=== PATIENT | female | born 1950 | race Caucasian/White ===

== ENCOUNTER 2016-12-23 09:50 | Emergency (ER) | payer MEDICAID, OTHER ==
[~2016-12-23] VITALS: Ht 167.6 cm; Wt 59.1 kg
[2016-12-23 10:14] VITALS: BP 157/78; PULSE 139; RESP 16; O2SAT 98
--- NOTE | 2016-12-23 13:15 | ED.REPORT ---
HPI-Psychiatric Illness Date of Service December 23, 2016 ED Provider: Juan Jose Caldwell PA-C Mitzi is an otherwise healthy 66-year-old female with a chief complaint of anxiety. Patient reports a 30 year history of anxiety, which she feels is preventing her from doing things she needs to do in the near future such as signing up for Medicare, becoming established with a medical provider or making her housing arrangements. She has not seen a doctor in "years", but she had previously been prescribed a "mild tranc." She wishes to get some medication to help her with her upcoming stressful events. Admits history of a mental health hospitalization after a suicide attempt. She states she cannot recall the method of her attempt. Admits to recent suicide of her brother possibly 4 years ago as well as several friends over the years. Denies suicidal ideation, homicidal ideation, access to firearms, drug/alcohol use. Nursing Notes Stated Complaint: ANXIETY Chief Complaint: Psychiatric Complaint Nursing Notes Reviewed: Yes Allergies: Coded Allergies: No Known Allergies (Unverified , 12/23/16) Scheduled PRN Hydroxyzine Pamoate (HydrOXYzine Pamoate) 25 Mg Capsule 25 MG PO TID PRN PRN For Anxiety General Time Seen by MD: 12:50 Chief Complaint Anxious Risk-Psychiatric Illness Suicide Risk Stratification Suicide Risk Factors - Adult: : Close associate suicide: Family Hx of Suicide: Previous attempt: Prior psych admissionNo: Access to firearms, Alcohol use, Substance abuse RF Statements: Risk factors reviewed Review of Systems General: Denies fever, chills, malaise. HEENT: Denies congestion, headache, sore throat. Respiratory: Denies dyspnea, cough, shortness of breath, wheezing. Cardiovascular: Denies chest pain, palpitations. Gastrointestinal: Denies vomiting, diarrhea, abdominal pain. Genitourinary: Denies frequency, urgency, dysuria, hematuria. Otherwise as noted in HPI. Physical Exam General: Well appearing, well developed, well nourished, no acute distress. Sitting comfortably on the floor eating a meal. Head: Atraumatic, normocephalic. Eyes: No scleral icterus or injection. No discharge. Vision grossly intact. ENT: Voice clear, hearing grossly intact. Respiratory: Regular rate and rhythm. Breath sounds present, clear to auscultation and equal bilaterally. No respiratory distress. No increased work of breathing, speaks in complete sentences. Cardiovascular: Tachycardic rate at 104 bpm and regular rhythm, without murmur, gallop or rub. No pedal edema. Gastrointestinal: Abdomen flat and non-tender without guarding or rebound. Bowel sounds normoactive. Skin: Warm and dry. Neurological: Grossly nonfocal. Psychological: Alert and oriented. Speech appropriate, linear and logical. Behavior appropriate. Initial Vital Signs Vital Signs (First) Date Time Temp Pulse Resp B/P Pulse Ox O2 Delivery O2 Flow Rate FiO2 12/23/16 10:14 35.2 139 16 157/78 98 12/23/16 13:52 Room Air Initial VS: Vital signs abnormal (tachycardia) Re-Eval/Medical Decision Med Decision/Clinical Course Otherwise healthy 66 year old female presenting with chief complaint of anxiety seeking medication to help her through what she expects to be a stressful period in her life. She reports a long history of anxiety and has not seen a doctor in "years." Physical examination is benign, revealing no medical instability. Patient is offered hydroxyzine in the department which is declined. Patient submits urine tox DIP which is positive for marijuana and barbiturates. Patient is seen by JUWAN Pritchard, who provides her with resources regarding transitioning the Medicaid as well as obtaining mental health services with [facility].. Patient is becoming established with [facility] for primary care as well. We do not feel that providing prescription for benzodiazepines is appropriate, and hydroxyzine is offered instead. Patient feels ready to be discharged to home. Denies suicidal ideation, homicidal ideation. Advise primary care follow-up, mental health follow-up, emergency return precautions. Patient verbalizes understanding of and consent to the plan. Discharge & Departure Impression: Primary Impression: Anxiety )( Condition at Discharge: No danger to self, No danger to others, No suicidal ideation, No homicidal ideation Disposition: Home Discharge Condition All VS Reviewed: Yes Condition: Stable Additional Instructions: Evaluation in the emergency department for anxiety includes history, physical examination and evaluation by our social work administrator. He do not appear to be a danger to herself or others or gravely disabled. I believe is stable and safe to be discharged. While I have no doubt that you are experiencing anxiety, I am not able to for failure request for benzodiazepines. We will write prescription for hydroxyzine 25 mg to be taken up to 3 times a day for anxiety. Be aware that this is somewhat sedated and avoid alcohol or operating a vehicle within 4 hours of taking this medication. You have been connected with services to help you transition to Medicare. Contact [facility] as soon as possible to become established for both primary care services and mental health services. Return to the emergency department for new or worsening symptoms including thoughts of harming yourself or others. Referrals: [facility] EDSupervising Provider for APC: Brian Snyder DO copies to: [facility] Juan Jose Caldwell PA-C December 23, 2016 13:15
[2016-12-23] MEDS ORDERED: hydrOXYzine Pamoate 25 mg Capsule PO ONE (13:20)
[2016-12-23 13:52] VITALS: BP 132/80; PULSE 110; RESP 18; O2SAT 98
[2016-12-23] MEDS ORDERED: HYDR-3797 PO (15:30)
[2016-12-23 15:45] VITALS: BP 152/81; PULSE 98; RESP 18; O2SAT 100
== END 2016-12-23 15:51 | disposition home or self-care (01) ==
LOC: SED 09:50
DX: F41.9 Anxiety disorder, unspecified (principal)